=== PATIENT | female | born 1960 | race Hispanic/Latino ===

== ENCOUNTER 2022-06-17 02:41 | Emergency (ER) | payer SELFPAY ==
[~2022-06-17] VITALS: Ht 152.4 cm; Wt 75.3 kg
== END 2022-06-17 03:26 | disposition home or self-care (01) ==
LOC: ER 02:51
DX: R20.2 Paresthesia of skin (principal); I10 Essential (primary) hypertension; E78.5 Hyperlipidemia, unspecified; E03.9 Hypothyroidism, unspecified
CPT/HCPCS: 99282